=== PATIENT | female | born 1985 | race American Indian/Alaskan Native ===

== ENCOUNTER 2018-12-16 13:00 | Emergency (ER) | payer SELFPAY ==
[2018-12-16] MEDS ORDERED: DECADRON IM ONE (13:29)
[2018-12-16] MEDS ORDERED: TORADOL IM ONE (13:29)
--- NOTE | 2018-12-16 13:30 | Event Note ---
ED Screening Note Date of service: 12/16/18 Time: 13:26 ED Screening Note: 33 y/o female comes in for acute back pain after lifting a client yesterday and heard something pop in her back. This initial assessment/diagnostic orders/clinical plan/treatment(s) is/are subject to change based on patients health status, clinical progression and re- assessment by fellow clinical providers in the ED. Further treatment and workup at subsequent clinical providers discretion. Patient/guardian urged not to elope from the ED as their condition may be serious if not clinically assessed and managed. Initial orders include:
[2018-12-16 13:32] VITALS: BP 131/105
--- NOTE | 2018-12-16 14:48 | Emergency Department Report ---
ED Back Pain/Injury HPI - General Chief Complaint: Back Pain/Injury Stated Complaint: BACK PAIN Time Seen by Provider: 12/16/18 14:37 Source: EMS Limitations: No Limitations - History of Present Illness Initial Comments: This is a 33-year-old female who presents to ED complaining of left sided back pain starting yesterday. Patient states that she was lifting a bed riddled cli ent off her bed when she accidentally injured her back. Patient states that pain is throbbing and aching in nature as retained left thigh. Patient denies falling or any any other trauma. Patient states pain is sharp in nature with a severity 10 out of 10. She denies any deformity, dysuria, fever, chills, MD Complaint: back injury - Related Data Previous Rx's Medication Instructions Recorded Last Taken Type HYDROcodone/APAP 10-325 [[place] 1 each PO Q4-6H PRN #16 tablet 06/05/14 Unknown Rx 10-325 mg TAB] Ondansetron [Zofran Odt] 4 mg SL Q6H PRN #12 tab.rapdis 06/05/14 Unknown Rx Ibuprofen [Motrin 800 MG tab] 800 mg PO Q8HR PRN #90 tablet 01/03/15 Unknown Rx oxyCODONE /ACETAMINOPHEN [Percocet 1 tab PO Q6HR PRN #30 tablet 01/03/15 Unknown Rx 5/325 mg] Ibuprofen [Motrin 800 MG tab] 800 mg PO Q8HR PRN #30 tablet 12/16/18 Unknown Rx traMADol [Ultram 50 MG tab] 50 mg PO Q6HR PRN #15 tablet 12/16/18 Unknown Rx Allergies Allergy/AdvReac Type Severity Reaction Status Date / Time No Known Allergies Allergy Verified 12/16/18 13:50 ED Review of Systems ROS: Stated complaint: BACK PAIN Other details as noted in HPI Comment: All other systems reviewed and negative ED Past Medical Hx Family history: no significant family history ED Back Pain Physical Exam - Exam General: Vital signs noted. No distress. Alert and acting appropriately. EXTREMITIES/MUSCULOSKELETAL: No cyanosis, clubbing, rash, lesions or edema. Full ROM bilaterally. LE 5+ strength bilaterally, straight leg raise on the left side positive. Spinal tenderness NEUROLOGIC: The patient is cooperative with no focal neurologic deficits. Normal speech. Normal sensation in bilateral upper and lower extremities, No loss of sensation, No facial droop, Negative rhomberg. Back/Abdomen: Yes Straight Leg Raise Pain, No Abdominal Tenderness, No Perithoracic Tenderness, No Perilumbar Tenderness, No Sacroiliac Tenderness, No Flank Tenderness Neuro: Yes Normal Sensation, Yes Normal DTR's, Yes Normal Gait, No Motor Weakness ED Course Vital Signs 12/16/18 13:27 Temperature 98.3 F Pulse Rate 82 Blood Pressure 131/105 O2 Sat by Pulse 98 Oximetry Ed Back Pain Tests - Tests Tests: Normal X Rays ED Medical Decision Making - Radiology Data Radiology results: report reviewed, image reviewed Fluoro Time In Minutes: LUMBAR SPINE, 3 VIEWS INDICATION / CLINICAL INFORMATION: back injury. COMPARISON: None available. FINDINGS: Vertebral body heights and disc spaces are fairly well-preserved. Posterior alignment is normal. No suggestion of fracture or significant degenerative change. IMPRESSION: No significant osseous abnormality. Signer Name: Christine Sagastume MD Signed: 12/16/2018 2:48 PM Workstation Name: [id number] Transcribed By: JR Dictated By: Christine Sagastume MD Electronically Authenticated By: Christine Sagastume MD Signed Date/Time: 12/16/18 1448 - Medical Decision Making 33-year-old female who presents with lumbar radiculopathy/muscle sprain ED course: Patient received Toradol and Decadron in ED. Vital signs are normal patient is in no acute distress Discussed with patient follow-up with primary care physician. Discussed the patient and take medications as prescribed. Patient has no neurological deficit. Patient is alert and oriented 3 and understands all instructions given. Critical care attestation.: If time is entered above; I have spent that time in minutes in the direct care of this critically ill patient, excluding procedure time. ED Disposition Clinical Impression: Strain of muscle, fascia and tendon of lower back, initial encounter, Lumbar radiculopathy Disposition: - TO HOME OR SELFCARE Is pt being admited?: No Does the pt Need Aspirin: No Condition: Stable Instructions: Muscle Strain (ED), Sciatica (ED), Low Back Strain (ED), Lumbar Radiculopathy (ED) Additional Instructions: Make sure to follow up with the primary care physician as discussed. Take all your medications as you've been prescribed. If you have any worsening symptoms or develop new symptoms please return to ED immediately. Prescriptions: Ibuprofen [Motrin 800 MG tab] 800 mg PO Q8HR PRN #30 tablet PRN Reason: Pain traMADol [Ultram 50 MG tab] 50 mg PO Q6HR PRN #15 tablet PRN Reason: Pain Referrals: MARY MILLER MD [Primary Care Provider] - 3-5 Days [facility] [Outside] - 3-5 Days Forms: Work/School Release Form(ED) Time of Disposition: 15:28
--- NOTE | 2018-12-16 14:52 | XRay Report ---
LUMBAR SPINE, 3 VIEWS INDICATION / CLINICAL INFORMATION: back injury. COMPARISON: None available. FINDINGS: Vertebral body heights and disc spaces are fairly well-preserved. Posterior alignment is normal. No s uggestion of fracture or significant degenerative change. IMPRESSION: No significant osseous abnormality. Signer Name: Christine Sagastume MD Signed: 12/16/2018 2:48 PM Workstation Name: [id number]
== END 2018-12-16 15:50 | disposition home or self-care (01) ==
LOC: ED 13:00
DX: S39.012A Strain of muscle, fascia and tendon of lower back, initial encounter (principal); M54.16 Radiculopathy, lumbar region; X50.0XXA Overexertion from strenuous movement or load, initial encounter; Y93.89 Activity, other specified; Y92.89 Other specified places as the place of occurrence of the external cause; Y99.8 Other external cause status
CPT/HCPCS: 72100; 96372; 99283; J1100; J1885

== ENCOUNTER 2019-01-03 17:35 | Emergency (ER) | payer SELFPAY ==
--- NOTE | 2019-01-03 17:59 | Emergency Department Report ---
Blank Doc - Documentation Documentation: This is a 33-year-old female that presents with left leg pain. This initial assessment/diagnostic orders/clinical plan/treatment(s) is/are subject to change based on patient's health status, clinical progression and re- assessment by fellow clinical providers in the ED. Further treatment and workup at subsequent clinical providers discretion. Patient/guardians urged not to elope from the ED as their condition may be serious if not clinically assessed and managed. Initial orders include: 1- Patient sent to [facility] for further evaluation and treatment 2- doppler studies
[2019-01-03 18:02] VITALS: BP 138/115
--- NOTE | 2019-01-03 20:03 | Vascular Lab Report ---
DUPLEX DOPPLER LOWER EXTREMITY VEINS, LEFT INDICATION: leg pain. Generalized left leg pain for the past 2 weeks TECHNIQUE: Duplex doppler imaging was performed through the veins of the left lower extremity using venous compr ession and other maneuvers. COMPARISON: No relevant prior imaging study available. FINDINGS: Left Common femoral vein: Negative. Left Superficial femoral vein: Negative. Left Popliteal vein: Negative. Left Calf veins: Negative. Additional findings: None.. IMPRESSION: 1. No sonographic evidence for DVT in the left lower extremity. Signer Name: Randolph Moreno MD Signed: 01/03/2019 7:58 PM Workstation Name: [id number]
[2019-01-03] MEDS ORDERED: TORADOL IM ONE (20:26)
[2019-01-03] MEDS ORDERED: DECADRON IM ONE (20:26)
--- NOTE | 2019-01-03 20:38 | Emergency Department Report ---
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 there is no numbness no tingling no deformity pt remains ambulatory to base per patient. there is no numbness or swelling, Onset/Timin -: week(s) Location: lower extremity (left thigh and lower extrem ) Severity scale (0 -10): 4 Quality: aching Consistency: constant Improves with: none Worsens with: movement Treatments Prior to Arrival: none - Related Data Previous Rx's Medication Instructions Recorded Last Taken Type HYDROcodone/APAP 10-325 [[place] 1 each PO Q4-6H PRN #16 tablet 06/05/14 Unknown Rx 10-325 mg TAB] Ondansetron [Zofran Odt] 4 mg SL Q6H PRN #12 tab.rapdis 06/05/14 Unknown Rx Ibuprofen [Motrin 800 MG tab] 800 mg PO Q8HR PRN #90 tablet 01/03/15 Unknown Rx oxyCODONE /ACETAMINOPHEN [Percocet 1 tab PO Q6HR PRN #30 tablet 01/03/15 Unknown Rx 5/325 mg] Ibuprofen [Motrin 800 MG tab] 800 mg PO Q8HR PRN #30 tablet 12/16/18 Unknown Rx traMADol [Ultram 50 MG tab] 50 mg PO Q6HR PRN #15 tablet 12/16/[address] [[place] Dr] 75 mg PO TID PRN #90 tablet 01/03/19 Unknown Rx Menthol/Camphor [[place] 1 applicatio TP QID PRN #1 tube 01/03/19 Unknown Rx Ointment] methOCARBAMOL [Robaxin TAB] 750 mg PO Q8H PRN #90 tablet 01/03/19 Unknown Rx Allergies Allergy/AdvReac Type Severity Reaction Status Date / Time No Known Allergies Allergy Verified 12/16/18 13:50 ED Review of Systems ROS: Stated complaint: POSS BLOOD CLOT IN (L) LEG Other details as noted in HPI Constitutional: denies: chills, fever Eyes: denies: eye pain, eye discharge, vision change ENT: denies: ear pain, throat pain Respiratory: denies: cough, shortness of breath, wheezing Cardiovascular: denies: chest pain, palpitations Endocrine: no symptoms reported Gastrointestinal: denies: abdominal pain, nausea, diarrhea Genitourinary: denies: urgency, dysuria, discharge Musculoskeletal: back pain, arthralgia, myalgia Skin: denies: rash, lesions Neurological: denies: headache, weakness, paresthesias Psychiatric: denies: anxiety, depression Hematological/Lymphatic: denies: easy bleeding, easy bruising ED Past Medical Hx - Past Medical History Previous Medical History?: No Hx Congestive Heart Failure: No Hx Diabetes: Yes Hx Asthma: No Hx COPD: No Hx HIV: No - Surgical History Past Surgical History?: Yes Additional Surgical History: c section - Social History Smoking Status: Never Smoker Substance Use Type: None - Medications Home Medications: Home Medications Medication Instructions Recorded Confirmed Last Taken Type HYDROcodone/APAP 10-325 [[place] 1 each PO Q4-6H PRN #16 tablet 06/05/14 01/03/15 Unknown Rx 10-325 mg TAB] Ondansetron [Zofran Odt] 4 mg SL Q6H PRN #12 tab.rapdis 06/05/14 01/03/15 Unknown Rx Ibuprofen [Motrin 800 MG tab] 800 mg PO Q8HR PRN #90 tablet 01/03/15 Unknown Rx oxyCODONE /ACETAMINOPHEN [Percocet 1 tab PO Q6HR PRN #30 tablet 01/03/15 Unknown Rx 5/325 mg] Ibuprofen [Motrin 800 MG tab] 800 mg PO Q8HR PRN #30 tablet 12/16/18 Unknown Rx traMADol [Ultram 50 MG tab] 50 mg PO Q6HR PRN #15 tablet 12/16/[address] [[place]] 75 mg PO TID PRN #90 tablet 01/03/19 Unknown Rx Menthol/Camphor [[place] 1 applicatio TP QID PRN #1 tube 01/03/19 Unknown Rx Ointment] methOCARBAMOL [Robaxin TAB] 750 mg PO Q8H PRN #90 tablet 01/03/19 Unknown Rx ED Physical Exam - General Limitations: No Limitations General appearance: alert, in no apparent distress - Head Head exam: Present: atraumatic, normocephalic - Eye Eye exam: Present: normal appearance, PERRL, EOMI Pupils: Present: normal accommodation - ENT ENT exam: Present: mucous membranes moist - Neck Neck exam: Present: normal inspection, full ROM. Absent: tenderness, meningismus, lymphadenopathy, thyromegaly - Expanded Neck Exam Expanded Neck exam: Absent: tenderness, midline deformity, anterior neck swelling, thyroid mass, carotid bruit, tracheal deviation - Respiratory Respiratory exam: Present: normal lung sounds bilaterally. Absent: respiratory distress, wheezes, rales, rhonchi, stridor, chest wall tenderness - Cardiovascular Cardiovascular Exam: Present: regular rate, normal rhythm, normal heart sounds. Absent: systolic murmur, diastolic murmur, rubs, gallop - GI/Abdominal GI/Abdominal exam: Present: soft, normal bowel sounds. Absent: distended, tenderness, bruit, hernia - Rectal Rectal exam: Present: deferred - Extremities Exam Extremities exam: Present: normal inspection, full ROM, tenderness (left anterior midthigh pain to deep palpation rom intact no swelling no ecchymosis no swelling ), normal capillary refill. Absent: pedal edema, joint swelling, calf tenderness - Expanded Lower Extremity Exam Left Hip exam: Present: full ROM. Absent: tenderness Upper Leg exam: Present: full ROM, tenderness (anterior thigh ). Absent: swelling, abrasion, laceration, ecchymosis, deformity, crepidus, dislocation, erythema Knee exam: Present: normal inspection, full ROM. Absent: tenderness, swelling, abrasion, pain w/ pronation/supination Lower Leg exam: Present: full ROM, tenderness. Absent: swelling, erythema, palpable cord, Darvin's sign Ankle exam: Present: normal inspection, full ROM. Absent: tenderness Foot/Toe exam: Present: normal inspection, full ROM, tenderness. Absent: swelling Neuro vascular tendon exam: Absent: pulse deficit, motor deficit, sensory deficit, tendon deficit, abnormal 2-point discrimination Gait: Positive: observed and normal - Back Exam Back exam: Present: normal inspection, full ROM, tenderness, muscle spasm, paraspinal tenderness. Absent: CVA tenderness (R), CVA tenderness (L), vertebral tenderness (no posterior vertebral point tenderness ), rash noted - Neurological Exam Neurological exam: Present: alert, oriented X3, CN II-XII intact, normal gait. Absent: motor sensory deficit - Expanded Neurological Exam Expanded Patient oriented to: Present: person, place, time Speech: Present: fluid speech Cranial nerves: EOM's Intact: Normal, Gag Reflex: Normal, Tongue Deviation: Normal, Nystagmus: Normal, Facial Sensation: Normal Cerebellar function: Finger to Nose: Normal, Heel to [place]: Normal, Romberg: Normal Upper motor neuron: Tee Neglect: Normal, Pronator Drift: Normal, Babinski Sign: Normal, Sensory Extinction: Normal Sensory exam: Upper Extremity Temperature: Normal, Lower Extremity Light Touch: Normal, Lower Extremity Pin Prick: Normal, Lower Extremity Temperature: Normal, LE 2 Point Discrimination: Normal Motor strength exam: RUE: 5, LUE: 5, RLE: 5 DTR: bicep (R): 2+, bicep (L): 2+, ankle (R): 2+, ankle (L): 2+ Best Eye Response ([place]): (4) open spontaneously Best Motor Response ([place]): (6) obeys commands Best Verbal Response ([place]): (5) oriented [place] Total: 15 - Psychiatric Psychiatric exam: Present: normal affect, normal mood - Skin Skin exam: Present: warm, dry, intact, normal color. Absent: rash ED Course Vital Signs 01/03/19 18:00 Temperature 99 F Pulse Rate 100 H Respiratory 18 Rate Blood Pressure 138/115 O2 Sat by Pulse 99 Oximetry ED Medical Decision Making - Radiology Data Radiology results: report reviewed, image reviewed Ordering Physician: AIMEE NELSON NP Date of Service: 01/03/19 Procedure(s): VL venous duplex LE LT Accession Number(s): [id number] cc: AIMEE NELSON NP DUPLEX DOPPLER LOWER EXTREMITY VEINS, LEFT INDICATION: leg pain. Generalized left leg pain for the past 2 weeks TECHNIQUE: Duplex doppler imaging was performed through the veins of the left lower extremity using venous compression and other maneuvers. COMPARISON: No relevant prior imaging study available. FINDINGS: Left Common femoral vein: Negative. Left Superficial femoral vein: Negative. Left Popliteal vein: Negative. Left Calf veins: Negative. Additional findings: None.. IMPRESSION: 1. No sonographic evidence for DVT in the left lower extremity. Signer Name: Randolph Moreno MD Signed: 01/03/2019 7:58 PM Workstation Name: [email or web address] Transcribed By: JW Dictated By: Randolph Moreno MD Electronically Authenticated By: Randolph Moreno MD Signed Date/Time: 01/03/191957 DD/ 56 TD/TT: - Medical Decision Making US normal no DVT , this musculoskeletal plan NSAIDs and muscle relaxanats moist heat therapy continue to follow up with pcp and workmans comp doctor as scheduled, pt verbalized agreement and understanding of same , pt will dc'd to home in stable condition at this time. Critical care attestation.: If time is entered above; I have spent that time in minutes in the direct care of this critically ill patient, excluding procedure time. ED Disposition Clinical Impression: Muscle strain of thigh Qualifiers: Encounter type: initial encounter Laterality: left Qualified Code(s): S76.912A - Strain of unspecified muscles, fascia and tendons at thigh level, left thigh, initial encounter Disposition: DC-01 TO HOME OR SELFCARE Is pt being admited?: No Does the pt Need Aspirin: No Condition: Fair Instructions: Muscle Strain (ED) Prescriptions: methOCARBAMOL [Robaxin TAB] 750 mg PO Q8H PRN #90 tablet PRN Reason: muscle spasm Menthol/Camphor [[place] Ointment] 1 applicatio TP QID PRN #1 tube PRN Reason: pain Diclofenac Dr [Voltaren Dr] 75 mg PO TID PRN #90 tablet PRN Reason: pain Referrals: MARY MILLER MD [Primary Care Provider] - 3-5 Days Forms: Work/School Release Form(ED) Time of Disposition: 20:49
== END 2019-01-03 20:55 | disposition home or self-care (01) ==
LOC: ED 17:35
DX: S76.912A Strain of unspecified muscles, fascia and tendons at thigh level, left thigh, initial encounter (principal); E11.9 Type 2 diabetes mellitus without complications; X58.XXXA Exposure to other specified factors, initial encounter; Y93.89 Activity, other specified; Y92.89 Other specified places as the place of occurrence of the external cause; Y99.8 Other external cause status
CPT/HCPCS: 93971; 96372; 99283; J1100; J1885